=== PATIENT | female | born 1960 | race Two or more races ===

== ENCOUNTER 2016-10-28 04:54 | Inpatient (IN) | payer MEDICAID ==
[~2016-10-28] VITALS: Ht 165.1 cm; Wt 132.9 kg
--- NOTE | 2016-10-28 04:55 | NUR ---
TO BED 4 BIB PARAMEDICS C/O ABDOMINAL PAIN X COUPLE OF HOURS, N/V X100 PER PT REPORT. PT AAOX4 NO ACUTE DISTRESS NOTED, RESP EVEN AND UNLABORED. PLACE PT ON CARDIAC MONITORING, CONTINUOUS POX. PENDING ER MD LIM.
--- NOTE | 2016-10-28 04:57 | NUR ---
ER MD AT BEDSIDE TO EVAL PT WITH ORDERS RECEIVED. WILL CARRY OUT ORDERS.
[2016-10-28] MEDS ORDERED: ONDANSETRON HCL/PF 4 MG/2 ML VIAL ONE (05:11)
[2016-10-28] MEDS ORDERED: IV NS 0.9% 1,000 ML ONE (05:11)
[2016-10-28] MEDS ORDERED: HYDROMORPHONE 1 MG/1 ML DISP.SYRIN ONE (05:11)
[2016-10-28] MEDS ORDERED: IV SET PRIMARY 1 EA INFUS.SET MC ONE (05:11)
--- NOTE | 2016-10-28 05:14 | NUR ---
RN AT BEDSIDE TO MEDICATE PT.
[2016-10-28] MEDS ORDERED: ONDANSETRON HCL/PF 4 MG/2 ML VIAL IVP ONE (05:30)
[2016-10-28] MEDS ORDERED: IV NS 0.9% 1,000 ML BAG IV ONE (05:30)
[2016-10-28] MEDS ORDERED: HYDROMORPHONE INJ 2 MG/ML DISP.SYRIN IV ONE (05:30)
--- NOTE | 2016-10-28 05:35 | NUR ---
[facility] called for transport. ETA [id number]
[2016-10-28 05:45] LABS: BASOPHILS % (AUTO) 0.1 % (0.0-2.0); EOSINOPHILS # (AUTO) 0.1 /CMM (0.0-0.7); EOSINOPHILS % (AUTO) 0.7 % (0.0-6.0); HEMATOCRIT 45 % (33-45); HEMOGLOBIN 15.2 g/dL (11.5-14.8); LYMPHOCYTES # (AUTO) 1.8 /CMM (0.8-4.8); LYMPHOCYTES % (AUTO) 13.8 % (20.0-44.0); MEAN CORPUSCULAR HEMOGLOBIN 31 PG (26.0-33.0); MEAN CORPUSCULAR HGB CONC 34 g/dl (31.0-36.0); MEAN CORPUSCULAR VOLUME 93 fL (82-100); MONOCYTES # (AUTO) 0.4 /CMM (0.1-1.30); MONOCYTES % (AUTO) 3.2 % (2.0-12.0); NEUTROPHILS # (AUTO) 10.9 /CMM (1.8-8.9); NEUTROPHILS % (AUTO) 82.2 % (43.0-81.0); PLATELET COUNT (AUTO) 276 /CMM (150-450); RDW COEFFICIENT OF VARIATION 12.9 (11.5-15.0); RED BLOOD CELL COUNT(AUTO) 4.85 MIL/uL (4.0-5.2); WHITE BLOOD COUNT (AUTO) 13.2 K/uL (4.3-11.0)
[2016-10-28 05:54] LABS: CALCIUM, SERUM 9.3 mg/dL (8.5-10.1); CREATININE 0.8 mg/dL (0.6-1.3); POTASSIUM 3.9 mmol/L (3.5-5.1)
[2016-10-28 05:59] LABS: INR 0.93 (0.87-1.13); PROTHROMBIN TIME 9.9 SECS (9.5-12.7)
[2016-10-28 06:00] LABS: ALBUMIN 4.2 g/dL (3.4-5.0); BILIRUBIN,TOTAL 0.3 mg/dL (0.2-1.0); TOTAL PROTEIN, SERUM 7.8 g/dL (6.4-8.2)
[2016-10-28] MEDS ORDERED: IOHEXOL-300 100 ML VIAL IV ONE (06:00)
[2016-10-28] MEDS ORDERED: CT SWABBABLE VALVE TRANS SET 1 EA INFUS.SET MC ONE (06:00)
[2016-10-28] MEDS ORDERED: IV NS 0.9% 250 ML IV ONE ×2 (06:00→23:26)
--- NOTE | 2016-10-28 06:20 | NUR ---
PT FAMILY MEMBERS AT BEDSIDE.
--- NOTE | 2016-10-28 07:08 | NUR ---
Pt on bed, awake, vss. Faily at bs
--- NOTE | 2016-10-28 07:31 | NUR ---
patient was taken to [facility] for Ct
--- NOTE | 2016-10-28 08:35 | NUR ---
patient is back from [facility] ct
--- NOTE | 2016-10-28 08:47 | NUR ---
urine sample sent to lab
--- NOTE | 2016-10-28 08:49 | NUR ---
lab called for urine sampler pickup. Spoke with Smita
[2016-10-28 09:02] LABS: APPEARANCE,URINE CLEAR (CLEAR); BILIRUBIN,URINE NEGATIVE (NEGATIVE); BLOOD, URINE NEGATIVE Ery/uL (NEGATIVE); COLOR,URINE YELLOW (YELLOW); KETONES,URINE NEGATIVE (NEGATIVE); LEUKOCYTE ESTERASE ,URINE NEGATIVE (NEGATIVE); NITRITE, URINE NEGATIVE (NEGATIVE); PH,URINE 5.5 (5.0-8.0); PROTEIN,URINE NEGATIVE (NEGATIVE); UGLUCOSE NEGATIVE (NEGATIVE); UROBILINOGEN,URINE 0.2 EU/dL (0.2)
--- NOTE | 2016-10-28 09:14 | NUR ---
PAGED DR FERGUSON --- WILL CALL US BACK. DR JEREZ MADE AWARE.
[2016-10-28] MEDS ORDERED: MORPHINE SULFATE INJ 4 MG/ML DISP.SYRIN ONE (09:21)
[2016-10-28] MEDS ORDERED: VITA1TAB56 PO (09:23)
[2016-10-28] MEDS ORDERED: FERR325T28 PO (09:23)
[2016-10-28] MEDS ORDERED: MAGN400T26 PO (09:23)
[2016-10-28] MEDS ORDERED: CHOL100044 PO (09:23)
[2016-10-28] MEDS ORDERED: MULT-24 PO (09:23)
[2016-10-28] MEDS ORDERED: MORPHINE SULFATE INJ 2 MG/ML DISP.SYRIN IV ONE (09:30)
--- NOTE | 2016-10-28 09:37 | NUR ---
(16 ) FR NG tube inserted through the ( r) nares correct positioning varified by aspiration, auscultation awaiting for xray. pt breathing normally and speaking in full sentences immediately after insertion.
--- NOTE | 2016-10-28 09:43 | NUR ---
norma oliveros at for ng placement verification
[2016-10-28] MEDS ORDERED: CEFTRIAXONE 1GM BAG (ER ONLY) 50 ML IV ONE (09:52)
[2016-10-28] MEDS ORDERED: IV SET PRIMARY PUMP SET 1 EA INFUS.SET MC ONE ×2 (09:52→23:25)
--- NOTE | 2016-10-28 09:59 | NUR ---
called pharmacy for gab
[2016-10-28] MEDS ORDERED: PIPERACILLIN /TAZOBACTAM 3.375 G in IV D5W 50 ML IV ONE (10:00)
[2016-10-28] MEDS ORDERED: CEFTRIAXONE 1 G in IV D5W 50 ML IV SCH (10:00)
[2016-10-28] MEDS ORDERED: CEFTRIAXONE 1 G in IV D5W 50 ML IV ONE (10:00)
[2016-10-28] MEDS ORDERED: IV NS 0.9% 1,000 ML IV PRN (10:07)
--- NOTE | 2016-10-28 10:07 | NUR ---
IV ROCEPHIN 1G --- DUPLICATE ORDER
--- NOTE | 2016-10-28 10:28 | NUR ---
Report given to nurse Toney RN for jenn
[2016-10-28] MEDS ORDERED: MAGNESIUM HYDROXIDE 30 ML UDC PO PRN (10:30)
[2016-10-28] MEDS ORDERED: Z GUARD REMEDY 2 OZ OINT TP PRN (10:30)
[2016-10-28] MEDS ORDERED: ONDANSETRON HCL/PF 4 MG/2 ML VIAL IVP PRN (10:30)
[2016-10-28] MEDS: PANTOPRAZOLE 40 MG VIAL IV SCH (10:30)
[2016-10-28] MEDS ORDERED: ZOLPIDEM TARTRATE 5 MG TABLET PO PRN (10:30)
--- NOTE | 2016-10-28 11:42 | NUR ---
pt transported to [address] [place] [address]
--- NOTE | 2016-10-28 12:15 | NUR ---
MS RN OPENING NOTES PT. ARRIVED ON UNIT IN STABLE CONDITION. FAMILY AT BEDSIDE. NO SOB OR SIGNS OF DISTRESS AT THIS TIME. BREATHING EVEN AND UNLABORED. WILL WAIT FOR MD ORDERS AND BEGIN ADMISSION PROCESS.
[2016-10-28] MEDS: MORPHINE SULFATE INJ 2 MG/ML DISP.SYRIN IV PRN ×2 (12:23→17:34)
[2016-10-28 12:30] VITALS: BP 130/70
[2016-10-28 16:00] VITALS: BP 132/68
[2016-10-28] MEDS ORDERED: BUPIVACAINE MPF 0.5% W/EPI INJ 30 ML VIAL ONE (17:27)
[2016-10-28] MEDS ORDERED: BACITRACIN 50000 UNITS/VIAL ONE (17:27)
--- NOTE | 2016-10-28 17:50 | NUR ---
MS RN NOTES PT. TAKEN OFF UNIT FOR SURGERY BY 2 OR NURSES IN STABLE CONDITION.
--- NOTE | 2016-10-28 19:00 | NUR ---
MS RN CLOSING NOTES PT. STILL IN OR. WILL ENDORSE TO NIGHTSHIFT NURSE FOR [facility]
[2016-10-28] MEDS ORDERED: SUCCINYLCHOLINE CHLORIDE 20 MG/ML VIAL ONE (19:44)
[2016-10-28] MEDS ORDERED: ROCURONIUM BROMIDE 50 MG/5 ML ONE (19:44)
[2016-10-28] MEDS ORDERED: FENTANYL PF 250MCG/5ML AMPUL ONE (19:44)
[2016-10-28] MEDS ORDERED: HYDROMORPHONE INJ 2 MG/ML DISP.SYRIN ONE ×3 (19:45→23:24)
[2016-10-28] MEDS ORDERED: ALBUMIN 5% 0 ML IV ONE ×2 (20:00→20:15)
[2016-10-28] MEDS ORDERED: HEMOSTATIC MATRIX 10 ML 1 EACH PAD MC ONE (20:07)
[2016-10-28] MEDS ORDERED: SEVOFLURANE 250 ML BOTTLE IH ONE (20:23)
[2016-10-28] MEDS ORDERED: BUPIVACAINE MPF W/EPI 0.25% 30 ML VIAL ONE (20:41)
[2016-10-28] MEDS ORDERED: LIDOCAINE HCL/PF 1% 30 ML SDV ONE (20:41)
[2016-10-28] MEDS ORDERED: IV NS 0.9% 50 ML IV ONE (23:24)
[2016-10-28] MEDS ORDERED: SET PCA INFUSE SET 1 EA INFUS.SET MC ONE (23:25)
[2016-10-28 23:30] VITALS: BP 144/78
[2016-10-28] MEDS ORDERED: HYDROMORPHONE MDV 30 MG in IV NS 0.9% 15 ML, PCA TOTAL VOLUME 1 BAG IV PRN ×3 (23:30)
[2016-10-29] VITALS (24 sets, daily range): BP systolic 110–158; BP diastolic 31–83
[2016-10-29] MEDS ORDERED: MORPHINE SULFATE INJ 4 MG/ML DISP.SYRIN IV PRN
[2016-10-29] MEDS ORDERED: PANTOPRAZOLE 40 MG VIAL IV SCH
[2016-10-29] MEDS ORDERED: SECONDARY IV SET 1 EA INFUS.SET MC ONE (00:01)
[2016-10-29] MEDS ORDERED: PANTOPRAZOLE 40 MG VIAL ONE (00:01)
[2016-10-29] MEDS: CEFAZOLIN 1 GM in IV D5W 50 ML IV SCH ×4 (00:08→21:54)
--- NOTE | 2016-10-29 04:03 | NUR ---
MANAGER ENT PT WAS TRANSFERRED FORM OR AFTER SURGERY- EXP. LAPAROTOMY, VENTRAL HERNIA REPAIR, REDUCTION OF INTERNAL HERNIA. PT IS AWAKE, ORIENTED BUT DROWSY. SPEECH IS CLEAR, MOVES ALL EXTREMITIES, FOLLOWS COMMANDS. LUNGS CLEAR, 02 6 L VIA SIMPLE MASK, SCOPE-SR. VSS, AFEBRILE. PT IS ON FIRE ALARM OPERATOR DILAUDID DRIP. DENIES PAIN, SOB OR ANY OTHER DISCOMFORT. ABDOMEN IS SOFT, NONDISTENDED, BOWEL SOUNDS DIMINISHED, NO REBOUND OR GUARDING NOTED. NGT CONNECTED TO LIS. NO DRAIN. F/C DRAINS SUFFICIENT AMT. OF GILES URINE. ABDOMINAL DRESSING IS DRY & INTACT.
[2016-10-29] MEDS ORDERED: CEFAZOLIN 1 GM ONE ×2 (04:58)
[2016-10-29] MEDS ORDERED: IV D5W 50 ML IV ONE ×2 (04:58)
[2016-10-29 05:24] LABS: HEMATOCRIT 41 % (33-45); HEMOGLOBIN 13.9 g/dL (11.5-14.8); LYMPHOCYTES # (AUTO) 0.7 /CMM (0.8-4.8); LYMPHOCYTES % (AUTO) 7.1 % (20.0-44.0); MEAN CORPUSCULAR HEMOGLOBIN 31 PG (26.0-33.0); MEAN CORPUSCULAR HGB CONC 34 g/dl (31.0-36.0); MEAN CORPUSCULAR VOLUME 93 fL (82-100); MONOCYTES # (AUTO) 0.4 /CMM (0.1-1.30); MONOCYTES % (AUTO) 3.8 % (2.0-12.0); NEUTROPHILS # (AUTO) 8.5 /CMM (1.8-8.9); NEUTROPHILS % (AUTO) 89.1 % (43.0-81.0); PLATELET COUNT (AUTO) 261 /CMM (150-450); RDW COEFFICIENT OF VARIATION 13.2 (11.5-15.0); RED BLOOD CELL COUNT(AUTO) 4.41 MIL/uL (4.0-5.2); WHITE BLOOD COUNT (AUTO) 9.5 K/uL (4.3-11.0)
[2016-10-29 05:56] LABS: ALBUMIN 3.1 g/dL (3.4-5.0); BILIRUBIN,TOTAL 1.6 mg/dL (0.2-1.0); CREATININE 0.6 mg/dL (0.6-1.3); MAGNESIUM 1.9 mg/dL (1.8-2.4); PHOSPHORUS 2.9 mg/dL (2.5-4.9); POTASSIUM 3.8 mmol/L (3.5-5.1); TOTAL PROTEIN, SERUM 6.4 g/dL (6.4-8.2)
[2016-10-29] MEDS: PANTOPRAZOLE 40 MG VIAL IV SCH (08:45)
[2016-10-29] MEDS: HEPARIN SODIUM, PORCINE 5000 UNITS/1 ML VIAL SQ SCH ×2 (08:46→21:56)
[2016-10-29] MEDS ORDERED: ANESTHESIA TRAY IN PYXIS 1 EA TRAY MC ONE (10:00)
--- NOTE | 2016-10-29 10:00 | NUR ---
Patient refusing hernández be removed until the doctor have seen her urine color. She is concerned her urine is concentrated, Dr. De La Cruz have seen the urine and ordered to increase NS IVF to 100 ml/hr.
[2016-10-29] MEDS: HYDROMORPHONE 1 MG/1 ML DISP.SYRIN IV PRN ×3 (13:19→21:38)
[2016-10-29 13:53] LABS: ALBUMIN 3.4 g/dL (3.4-5.0); BILIRUBIN,DIRECT 0.7 mg/dL (0.0-0.2); BILIRUBIN,TOTAL 1.6 mg/dL (0.2-1.0); TOTAL PROTEIN, SERUM 6.8 g/dL (6.4-8.2)
[2016-10-29] MEDS ORDERED: IV NS 0.9% 1,000 ML IV PRN (16:00)
--- NOTE | 2016-10-29 16:00 | NUR ---
Talked with Dr. De La Cruz regarding urine concentration and patient concern, informed of UO being 30cc per hour. 1L NS bolus ordered and hernández removal post bolus. Cephacol ordered for sore throat with mild relief per patient
[2016-10-29] MEDS: MENTHOL/CETYLPYRD (CEPACOL) 1 LOZ LOZENGE PO PRN (16:20)
[2016-10-29] MEDS: IV NS 0.9% 1,000 ML IV PRN (18:48)
[2016-10-29] MEDS: ONDANSETRON HCL/PF 4 MG/2 ML VIAL IV PRN (21:37)
[2016-10-30] VITALS (17 sets, daily range): BP systolic 136–175; BP diastolic 65–120
[2016-10-30] MEDS: HYDROMORPHONE 1 MG/1 ML DISP.SYRIN IV PRN ×2 (01:51→05:33)
[2016-10-30] MEDS: MENTHOL/CETYLPYRD (CEPACOL) 1 LOZ LOZENGE PO PRN (02:33)
--- NOTE | 2016-10-30 03:14 | NUR ---
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 HAS REC'D DILAUDID ONE MG IVP AT 21:38 & 2AM FOR 8/[address] HOOKS WAS HERE AT START OF SHIFT TO ASSESS PT. IS ORDERING A TESSA MCGREGOR. PAPPAS CATHETER WAS REMOVED BY JOSE ENRIQUE AT SHIFT CHANGE PER DR. SON. SO FAR,AT THIS TIME, PT. HAS NOT URINATED. RN HAS TRIED THE BEDPAN SEVERAL TIMES AND NOTHING. ORION BENNETT HAD ATTEMPTED TO GET PT. ON BSC & PT. WAS TOO WEAK. PT.IS MORBIDLY OBESE. PT. REFUSING BEDBATH. CONT. POC. Addendum: 10/30/16 at 0321 by MARSHA VAZQUEZ RN PT.TOLERATING ICE CHIPS WELL. NO N&V.
[2016-10-30] MEDS: ONDANSETRON HCL/PF 4 MG/2 ML VIAL IV PRN (04:59)
[2016-10-30] MEDS: CEFAZOLIN 1 GM in IV D5W 50 ML IV SCH ×3 (05:00→21:18)
[2016-10-30] MEDS ORDERED: LORAZEPAM INJ 2 MG/ML VIAL ONE (05:11)
[2016-10-30 05:36] LABS: ALBUMIN 2.8 g/dL (3.4-5.0); BILIRUBIN,TOTAL 0.7 mg/dL (0.2-1.0); CALCIUM, SERUM 8.3 mg/dL (8.5-10.1); CREATININE 0.5 mg/dL (0.6-1.3); POTASSIUM 3.8 mmol/L (3.5-5.1); TOTAL PROTEIN, SERUM 6.1 g/dL (6.4-8.2)
[2016-10-30 06:00] LABS: BASOPHILS % (AUTO) 0.2 % (0.0-2.0); EOSINOPHILS % (AUTO) 0.3 % (0.0-6.0); HEMATOCRIT 39 % (33-45); HEMOGLOBIN 13.1 g/dL (11.5-14.8); LYMPHOCYTES # (AUTO) 1.4 /CMM (0.8-4.8); LYMPHOCYTES % (AUTO) 15.5 % (20.0-44.0); MEAN CORPUSCULAR HEMOGLOBIN 31 PG (26.0-33.0); MEAN CORPUSCULAR HGB CONC 34 g/dl (31.0-36.0); MEAN CORPUSCULAR VOLUME 93 fL (82-100); MONOCYTES # (AUTO) 0.7 /CMM (0.1-1.30); MONOCYTES % (AUTO) 7.5 % (2.0-12.0); NEUTROPHILS # (AUTO) 7.1 /CMM (1.8-8.9); NEUTROPHILS % (AUTO) 76.5 % (43.0-81.0); PLATELET COUNT (AUTO) 238 /CMM (150-450); RDW COEFFICIENT OF VARIATION 13.2 (11.5-15.0); RED BLOOD CELL COUNT(AUTO) 4.19 MIL/uL (4.0-5.2); WHITE BLOOD COUNT (AUTO) 9.3 K/uL (4.3-11.0)
[2016-10-30] MEDS: IV NS 0.9% 1,000 ML IV PRN ×2 (06:32→18:40)
--- NOTE | 2016-10-30 07:41 | NUR ---
CRNP - PT.REFUSED BEDBATH. PT. IS BECOMING MORE & MORE ANXIOUS. NO UOP YET. PT.HAS BSC & BEDPANS & STILL CANNOT GO. WEI CASTILLO NOTIFIED. ORDERS TO REPLACE PAPPAS CATH DONE BY 2 RN ASSIST. 500CC IMMEDIATELY WAS EXPELLED. ATIVAN ORDERED. ATIVAN ONE MG IVP ADM. FOR COMFORT. DILAUDID ADM. ONE MG IVP FOR PAIN Q 4 HRS. ZOFRAN ADM. FOR NAUSEA. PT.SLEPT IMMEDIATELY W/STABLE VS'S. VERBAL REPORT ADM. TO BHARATI INTERIANO RN. CONT. POC.
[2016-10-30] MEDS: PANTOPRAZOLE 40 MG VIAL IV SCH (09:25)
[2016-10-30] MEDS: HEPARIN SODIUM, PORCINE 5000 UNITS/1 ML VIAL SQ SCH ×2 (09:27→21:20)
--- NOTE | 2016-10-30 10:10 | NUR ---
ICU/RN - Notes NG tube removed as ordered. Pt tolerated procedure. Clear liquid diet started as ordered. Will continue to monitor.
--- NOTE | 2016-10-30 10:30 | NUR ---
ICU/RN - Notes Pt assisted to chair, tolerating breakfast well.
--- NOTE | 2016-10-30 11:24 | NUR ---
ICU/RN - Notes Report called to ORION Jarrett for continuity of care. Pt cleared for MedSurg status.
--- NOTE | 2016-10-30 11:55 | NUR ---
ICU/RN - Transfer Pt transferred to [place] [id number] via wheelchair in stable condition.
--- NOTE | 2016-10-30 12:00 | NUR ---
MS RN NOTES RECEIVED VIA WHEELCHAIR , ABLE TO AMBULATE WIT H ASSISTANCE , PATIENT AOX3 , NOT IN ACUTE DISTRESS , DENIES SOB AND DISCOMFORT AT THIS TIME , SPO2 OF 98% VIA RA , FC DRAINING VIA GRAVITY WITH CLEAR YELLOW URINE , ABDOMINAL DRESSING C/D/I , IV OF R AC # 18 AND L WRIST # 20 PATENT AND INTACT WITH NS @ 100ML/HR INFUSING WELL , ALL NEEDS ATTENDED , BED ON LOW AND LOCKED POSITION , SIDE RAILS X2 , CALL LIGHT WITHIN REACH , WILL CONTINUE TO MONITOR
[2016-10-30] MEDS: HYDROCODONE/APAP 5/325MG 1 EACH TABLET PO PRN ×2 (14:29→19:08)
--- NOTE | 2016-10-30 19:30 | NUR ---
MS RN INITIAL NOTE RECEIVED REPORT FROM RICCI SEARS. PT IN BED. A/A/O X4. LUNG SOUNDS DIMINISHED. BOWEL SOUNDS PRESENT. ABDOMINAL BINDER INTACT. PAPPAS INTACT AND DRAINING. IV PATENT AND INTACT. PULSES PRESENT IN ALL EXTREMITIES. REPOSITIONED FOR COMFORT. I/S AT BEDSIDE, ENCOURAGED PT TO USE REGULARLY. BED IN LOW LOCKED POSITION. CALL LIGHT WITHIN REACH. WILL CONTINUE TO MONITOR.
--- NOTE | 2016-10-30 22:15 | NUR ---
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 TAKEN OUT OF BED, PUT INTO [facility]RA CHAIR. DR CASTILLO NOTIFIED. ORDERS RECEIVED TO PUT PT ON TELE FOR 24HRS AND DO AN EKG. WILL CARRY OUT ORDERS. 2219 PT IN MAYRA CHAIR, STATES SHE FEELS BETTER IN CHAIR. WILL CONTINUE TO MONITOR.
[2016-10-31] VITALS: BP 150/66
[2016-10-31] MEDS: HYDROCODONE/APAP 5/325MG 1 EACH TABLET PO PRN ×2 (02:12→20:23)
[2016-10-31] MEDS: LORAZEPAM INJ 2 MG/ML VIAL IV PRN ×2 (02:21→23:22)
[2016-10-31 04:00] VITALS: BP 121/56
[2016-10-31] MEDS: CEFAZOLIN 1 GM in IV D5W 50 ML IV SCH ×3 (04:42→21:13)
--- NOTE | 2016-10-31 07:30 | NUR ---
RN NOTES RECEIVED REPORT FROM SAMIRA SEARS PT IS RESTING IN BED, ON O2 2LPM VIA NC, SR ON TELE MONITOR HR 83BPM AT THIS TIME. ONGOING IVF NS@100ML/HR INFUSING ON L WRIST. NOTED WITH ABDOMINAL BINDER, PER REPORT FIRST DRESSING CHANGE WILL BE DONE BY DR JAY. KEPT COMFORTABLE, SAFETY MAINTAINED, ENCOURAGED TO USE CALL LIGHT NEEDED, PT VERBALIZED UNDERSTANDING. CALL LIGHT WITHIN REACH.
--- NOTE | 2016-10-31 07:55 | NUR ---
RN NOTES PT IS REQUESTING SHE WANTS TO AMBULATE. PT EDUCATION PROVIDED, PER PT SHE REALLY FEELS THE NEED TO AMBULATE. WALKER PROVIDED TO PT, PT AMBULATED FOR A SHORT WHILE IN THE HALLWAY AND ASSISTED BACK TO BED. PLACED ON O2@3LPM VIA NC D/T SOB AFTER WALKING. KEPT PT COMFORTABLE IN BED.
[2016-10-31 08:00] VITALS: BP 151/76
[2016-10-31] MEDS: HEPARIN SODIUM, PORCINE 5000 UNITS/1 ML VIAL SQ SCH ×2 (08:32→21:15)
[2016-10-31] MEDS: PANTOPRAZOLE 40 MG VIAL IV SCH (08:32)
[2016-10-31] MEDS: IV NS 0.9% 1,000 ML IV PRN ×2 (08:33→17:24)
[2016-10-31] MEDS: HYDROMORPHONE 1 MG/1 ML DISP.SYRIN IV PRN ×2 (09:51→16:05)
--- NOTE | 2016-10-31 09:51 | NUR ---
RN NOTES PT C/O GENERALIZED PAIN RN OFFERED NORCO PER PT SHE WANTS STRONGER PAIN MED SINCE HER PAIN SCALE IS 9/10. DILAUDID 1 MG GIVEN, SIDE EFFECTS DISCUSSED WITH PT
[2016-10-31 12:00] VITALS: BP 151/70
[2016-10-31 16:00] VITALS: BP 152/79
--- NOTE | 2016-10-31 17:35 | NUR ---
RN NOTES CALLED DR SCHWARTZ'S OFFICE SPOKE WITH RONAK LEFT A MESSAGE REGARDING DRESSING CHANGE AWAITING FOR CALL BACK
--- NOTE | 2016-10-31 18:05 | NUR ---
RN NOTES RECEIVED CALL BACK FROM DR SCHWARTZ TO DO STAT CMP, CBC AND TO REMOVE FC NOW SINCE PT IS ABLE TO AMBULATE WITH WALKER. MD INFORMED PT'S DIET ADVANCED FROM CLEAR LIQUIDS TO SOFT DIET AND SHE'S ELMIRA WELL. PER OK TO REMOVE FC AND MONITOR FOR RETENTION.
--- NOTE | 2016-10-31 18:45 | NUR ---
RN NOTES PT REFUSED TO REMOVE FC RIGHT NOW, SHE SAID LATER, WILL ENDORSE TO NEXT SHIFT RN
[2016-10-31 18:48] LABS: BASOPHILS % (AUTO) 0.2 % (0.0-2.0); EOSINOPHILS # (AUTO) 0.1 /CMM (0.0-0.7); EOSINOPHILS % (AUTO) 1.1 % (0.0-6.0); HEMATOCRIT 37 % (33-45); HEMOGLOBIN 12.4 g/dL (11.5-14.8); LYMPHOCYTES # (AUTO) 1.6 /CMM (0.8-4.8); LYMPHOCYTES % (AUTO) 18.3 % (20.0-44.0); MEAN CORPUSCULAR HEMOGLOBIN 31 PG (26.0-33.0); MEAN CORPUSCULAR HGB CONC 33 g/dl (31.0-36.0); MEAN CORPUSCULAR VOLUME 92 fL (82-100); MONOCYTES # (AUTO) 0.5 /CMM (0.1-1.30); MONOCYTES % (AUTO) 5.5 % (2.0-12.0); NEUTROPHILS # (AUTO) 6.6 /CMM (1.8-8.9); NEUTROPHILS % (AUTO) 74.9 % (43.0-81.0); PLATELET COUNT (AUTO) 256 /CMM (150-450); RDW COEFFICIENT OF VARIATION 12.5 (11.5-15.0); RED BLOOD CELL COUNT(AUTO) 4.01 MIL/uL (4.0-5.2); WHITE BLOOD COUNT (AUTO) 8.8 K/uL (4.3-11.0)
[2016-10-31 18:57] LABS: CALCIUM, SERUM 8.3 mg/dL (8.5-10.1); CREATININE 0.6 mg/dL (0.6-1.3); POTASSIUM 3.4 mmol/L (3.5-5.1)
[2016-10-31 19:04] LABS: ALBUMIN 2.7 g/dL (3.4-5.0); BILIRUBIN,TOTAL 0.4 mg/dL (0.2-1.0); TOTAL PROTEIN, SERUM 6.4 g/dL (6.4-8.2)
--- NOTE | 2016-10-31 19:30 | NUR ---
RN INITIAL NOTE RECEIVED REPORT FROM MIGUEL SEARS. PT IN BED. A/A/O X4. LUNG SOUNDS CLEAR. BOWEL SOUNDS PRESENT. ABDOMINAL BINDER INTACT. IV PATENT AND INTACT. PULSES PRESENT IN ALL EXTREMITIES. BED IN LOW LOCKED POSITION WITH CALL LIGHT IN REACH. WILL CONTINUE TO MONITOR.
[2016-10-31 20:00] VITALS: BP 139/69
--- NOTE | 2016-10-31 20:00 | NUR ---
MS RN DR JAY AT BEDSIDE. CHANGING DRESSING, AREA CLEANED AND RE DRESSED. TELE D/C'D AND IV TKO. PT TOLERATED PROCEDURE WELL. WILL CONTINUE TO MONITOR.
[2016-11-01] VITALS: BP 126/69
[2016-11-01 04:00] VITALS: BP 150/73
[2016-11-01] MEDS: CEFAZOLIN 1 GM in IV D5W 50 ML IV SCH ×2 (05:37→12:04)
--- NOTE | 2016-11-01 07:00 | NUR ---
RN INITIAL NOTES RECEIVED PT IN CHAIR, ASLEEP, EASY TO AROUSE, ABLE TO MAKE NEEDS KNOWN, PT IS ON 2L NC, SATING WELL, NO S/S OF RESP. DISTRESS OR SOB, PT HAS ABDOMINAL INCISION, DRESSING CLEAN AND DRY, INTACT, PT HAS LAC #18G. SL, L WRIST #20G, SL, C/D/I/ PATENT, FLUSHING WELL, NO S/S OF INFECTION/ INFILTRATION, ALL SAFETY MEASURES IN PLACE AT ALL TIMES, CALL LIGHT WITHIN EASY REACH, WILL MONITOR PT CLOSELY
[2016-11-01 08:00] VITALS: BP 152/77
[2016-11-01] MEDS: PANTOPRAZOLE 40 MG VIAL IV SCH (08:58)
[2016-11-01] MEDS: HEPARIN SODIUM, PORCINE 5000 UNITS/1 ML VIAL SQ SCH (08:59)
[2016-11-01] MEDS: LORAZEPAM INJ 2 MG/ML VIAL IV PRN (10:29)
--- NOTE | 2016-11-01 10:29 | NUR ---
RN NOTES PT REQUESTED ATIVAN, SHE STATES SHE FEELS ANXIOUS
[2016-11-01] MEDS ORDERED: POTASSIUM CHLORIDE 20 MEQ POWDER PACKET PO ONE (11:30)
--- NOTE | 2016-11-01 12:31 | NUR ---
OPERATOR GROUND BASED AIR DEFENCE NOTES RECEIVED ORDERS FOR PT TO BE D/C. PT WILL BE GOING HOME. ALL INSTRUCTIONS AND PAPERWORK GIVEN. ALL QUESTIONS AND CONCERNS ANSWERED. RX AND WALKER GIVEN TO PT. ALL MEDICATIONS AND MD ORDERS CARRIED OUT. ALL BELONGINGS WITH PT. BELONGINGS LIST SIGNED AND IN CHART, PHOTOS TAKEN AND IN CHART, WOUND TREATMENT CARRIED OUT, EXTRA MATERIALS GIVEN TO PT FOR TREATMENT. EDUCATED PT ON WOUND TREATMENT. IV WILL REMOVED ONCE PT LEAVES. PT WILL BE GOING HOME. WILL BE COMING TO SENIOR INFORMATION DEVELOPER.
--- NOTE | 2016-11-01 13:02 | NUR ---
RN NOTES AT BEDSIDE, REMOVED IV, NAME BAND AND BLOOD BAND, EDUCATED ON RX AND WOUND TREATMENT, ANSWERED ALL QUESTIONS AND CONCERNS. PT WILL BE TAKEN BY WHEEL CHAIR TO AWAITING CAR
== END 2016-11-01 13:07 | disposition home or self-care (01) | DRG 227 ==
LOC: ER 04:57 → MED 11:20 → ICU 23:14 → MEDSG1 10-30 11:45 → TELE1 10-30 22:18 → MEDSG1 11-01 03:39
PROVIDERS: ADMIT Internal Medicine; ATTEND Internal Medicine
PROC: 0WQF0ZZ Repair Abdominal Wall, Open Approach (ICD-10-PCS; principal; 2016-10-28 18:00)
PROC: 0WJF4ZZ Inspection of Abdominal Wall, Percutaneous Endoscopic Approach (ICD-10-PCS; principal; 2016-10-28 18:00)
PROC: 0DN80ZZ Release Small Intestine, Open Approach (ICD-10-PCS; principal; 2016-10-28 18:00)
DX: K43.0 Incisional hernia with obstruction, without gangrene (principal); K72.00 Acute and subacute hepatic failure without coma; E43 Unspecified severe protein-calorie malnutrition; E66.01 Morbid (severe) obesity due to excess calories; D72.829 Elevated white blood cell count, unspecified; Z53.31 Laparoscopic surgical procedure converted to open procedure; Z98.84 Bariatric surgery status; Z68.42 Body mass index [BMI] 45.0-49.9, adult; K45.0 Other specified abdominal hernia with obstruction, without gangrene
CPT/HCPCS: 36415; 71010-TC; 80048-TC; 80053-TC; 80061-TC; 80076-TC; 81000-TC; 82140-TC; 83690-TC; 83735-TC; 84100-TC; 84484-TC; 84702-TC; 84703-TC; 85025-TC; 85730-TC; 86850-TC; 86921-TC; 87081-TC; 88302-TC; 88305-TC; 93979-TC; A4216; A4606; A6209; A6253; A6402; C9113; J0330; J0690; J0696; J1100; J1170; J1644; J2001; J2060; J2270; J2405; J2543; J2704; J2710; J3010; J3490; J7030; J7050; J7060; P9045; Q9967; Z7610

== ENCOUNTER 2017-03-05 17:31 | Emergency (ER) | payer MEDICAID, OTHER ==
[~2017-03-05] VITALS: Ht 170.2 cm; Wt 119.3 kg
[~2017-03-05 17:31] MED LIST: CHOL100044 PO; FERR325T28 PO; MAGN400T26 PO; MULT-24 PO; VITA1TAB56 PO
--- NOTE | 2017-03-05 17:40 | NUR ---
PT CAME IN WITH C/O ABDOMINAL PAIN SINCE 2PM TODAY, HX OF SBO AND HAD SX LAST 11/01. NOTED IN DISTRESS, CRYING. VSS. DENIES N/V/D, FEVER. SEEN BY FOR EVAL. BANEGAS AT . SAFETY AND COMFORT MEASURES PROVIDED. WILL MONITOR.
[2017-03-05] MEDS ORDERED: MORPHINE SULFATE INJ 2 MG/ML DISP.SYRIN IV ONE (18:00)
[2017-03-05] MEDS ORDERED: ONDANSETRON HCL/PF 4 MG/2 ML VIAL IVP ONE (18:00)
[2017-03-05] MEDS ORDERED: IV NS 0.9% 500 ML BAG IV ONE (18:00)
[2017-03-05] MEDS ORDERED: ONDANSETRON HCL/PF 4 MG/2 ML VIAL ONE (18:01)
[2017-03-05] MEDS ORDERED: MORPHINE SULFATE INJ 4 MG/ML DISP.SYRIN ONE ×2 (18:02→19:16)
--- NOTE | 2017-03-05 18:05 | NUR ---
IV ACCESS STARTED. BLOOD DRAWN FOR LABS. PT MEDICATED ORDERED.
[2017-03-05 18:09] LABS: BASOPHILS % (AUTO) 0.5 % (0.0-2.0); EOSINOPHILS # (AUTO) 0.1 /CMM (0.0-0.7); EOSINOPHILS % (AUTO) 0.7 % (0.0-6.0); HEMATOCRIT 41 % (33-45); HEMOGLOBIN 13.6 g/dL (11.5-14.8); LYMPHOCYTES # (AUTO) 2.1 /CMM (0.8-4.8); LYMPHOCYTES % (AUTO) 22.9 % (20.0-44.0); MEAN CORPUSCULAR HEMOGLOBIN 30 PG (26.0-33.0); MEAN CORPUSCULAR HGB CONC 33 g/dl (31.0-36.0); MEAN CORPUSCULAR VOLUME 91 fL (82-100); MONOCYTES # (AUTO) 0.4 /CMM (0.1-1.30); NEUTROPHILS # (AUTO) 6.4 /CMM (1.8-8.9); NEUTROPHILS % (AUTO) 70.9 % (43.0-81.0); PLATELET COUNT (AUTO) 277 /CMM (150-450); RDW COEFFICIENT OF VARIATION 12.9 (11.5-15.0)
[2017-03-05 18:19] LABS: CALCIUM, SERUM 8.7 mg/dL (8.5-10.1); CARBON DIOXIDE 27 mmol/L (21-32); CHLORIDE 106 mmol/L (98-107); CREATININE 0.7 mg/dL (0.6-1.3); GLUCOSE 129 mg/dL (74-106); SODIUM SERUM 140 mmol/L (136-145); UREA NITROGEN, BLOOD 14 mg/dL (7-18)
[2017-03-05 18:22] LABS: INR 0.9 (0.87-1.13); PROTHROMBIN TIME 9.3 SECS (9.5-12.7)
[2017-03-05 18:25] LABS: ALANINE AMINOTRANSFERASE 94 U/L (12-78); ALBUMIN 3.6 g/dL (3.4-5.0); ALKALINE PHOSPHATASE 137 U/L (46-116); ASPARTATE AMINOTRANSFERASE 145 U/L (15-37); BILIRUBIN,DIRECT 0.1 mg/dL (0.0-0.2); BILIRUBIN,TOTAL 0.3 mg/dL (0.2-1.0); LIPASE 172 U/L (73-393); TOTAL PROTEIN, SERUM 6.7 g/dL (6.4-8.2)
[2017-03-05 18:27] LABS: TROPONIN I < 0.017 ng/mL (0.00-0.056)
--- NOTE | 2017-03-05 18:39 | NUR ---
PT TAKEN TO CT.
--- NOTE | 2017-03-05 19:02 | NUR ---
RECEIVED REPORT FROM ORION FAIRCHILD FOR [facility]. PT RETURNED FROM CT.
--- NOTE | 2017-03-05 19:20 | NUR ---
URINE COLLECTED. CALLED LAB FOR LABORATORY PHLEBOTOMIST.
[2017-03-05] MEDS ORDERED: MORPHINE SULFATE INJ 4 MG/ML DISP.SYRIN IV ONE (19:30)
[2017-03-05 19:31] LABS: APPEARANCE,URINE Clear (CLEAR); BILIRUBIN,URINE SMALL (NEGATIVE); BLOOD, URINE Negative Ery/uL (NEGATIVE); COLOR,URINE Dark (YELLOW); KETONES,URINE Negative (NEGATIVE); LEUKOCYTE ESTERASE ,URINE Negative (NEGATIVE); NITRITE, URINE Negative (NEGATIVE); PROTEIN,URINE Trace mg/dl (NEGATIVE); UGLUCOSE Negative (NEGATIVE)
--- NOTE | 2017-03-05 19:40 | NUR ---
DR. LYN AT BEDSIDE SPEAKING TO PT REGARDING RESULTS.
[2017-03-05 19:44] LABS: BACTERIA,URINE None seen /HPF (None Seen); RBC,URINE 0-2 /HPF (0-2); SQUAMOUS EPITHELIAL CELL,UR Few /HPF (None Seen); WBC,URINE 0-2 /HPF (0-3)
[2017-03-05] MEDS ORDERED: SUCRALFATE 1 G TABLET PO ONE (20:00)
[2017-03-05] MEDS ORDERED: SUCRALFATE 1 G TABLET ONE (20:04)
[2017-03-05 21:13] VITALS: BP 138/76
--- NOTE | 2017-03-05 21:13 | NUR ---
IV removed. Catheter intact and site benign. Pressure and 4x4 applied to site. No bleeding noted. Patient discharged to home in stable condition. Written and verbal after care instructions given. Patient verbalizes understanding of instruction. ambulatory with a steady gait. instructed not to drive. pt verbalize understanding.
== END 2017-03-05 21:14 | disposition home or self-care (01) ==
LOC: ER 17:34
DX: R10.9 Unspecified abdominal pain (principal); Z91.011 Allergy to milk products
CPT/HCPCS: 36415; 71010; 74176; 80048; 80076; 81001; 83605; 83690; 84484; 85025; 85730; 93005; 96374; 96375; 96376; 99285; A4606; J7030; Z7610; 71250-TC; 81000-TC